=== PATIENT | male | born 1990 | race Hispanic/Latino ===

== ENCOUNTER 2018-04-07 22:00 | Emergency (ER) | payer BC ==
[2018-04-07 22:04] VITALS: BP 124/65; PULSE 98; RESP 18; TEMP 97.7; O2SAT 99
--- NOTE | 2018-04-07 23:29 | ED PDOC ---
HPI: Psych/Substance Abuse Time Seen by Provider: 04/07/18 22:12 Chief Complaint (Nursing): Alcohol Ingestion Chief Complaint (Provider): Alcohol Ingestion ED Caveat: Intoxicated History Per: Patient, EMS History/Exam Limitations: intoxication Onset/Duration Of Symptoms: Mins Additional Complaint(s): 28 year old male presents to the ED for alcohol intoxication and found sleeping in public. Patient admits to alcohol use and has no complaints, injuries, or drug use. PMD: none provided Past Medical History Reviewed: Historical Data, Nursing Documentation, Vital Signs Vital Signs: Last Vital Signs Temp 97.7 F 04/07/18 22:02 Pulse 98 H 04/07/18 22:02 Resp 18 04/07/18 22:02 BP 124/65 04/07/18 22:02 Pulse Ox 99 04/07/18 22:02 - Medical History PMH: No Chronic Diseases - Surgical History Surgical History: No Surg Hx - Family History Family History: States: Unknown Family Hx - Social History Alcohol: Social Drugs: Denies - Allergies Allergies/Adverse Reactions: Allergies Allergy/AdvReac Type Severity Reaction Status Date / Time No Known Allergies Allergy Verified 04/07/18 23:03 Review of Systems ROS Statement: Except As Marked, All Systems Reviewed And Found Negative Physical Exam - Reviewed Nursing Documentation Reviewed: Yes Vital Signs Reviewed: Yes - Physical Exam Appears: Positive for: Non-toxic, No Acute Distress Head Exam: Positive for: ATRAUMATIC, NORMOCEPHALIC Skin: Positive for: Normal Color, Warm, Dry Eye Exam: Positive for: Normal appearance Neck: Positive for: Normal, Painless ROM Cardiovascular/Chest: Positive for: Regular Rate, Rhythm. Negative for: Murmur Respiratory: Positive for: Normal Breath Sounds. Negative for: Wheezing, Respiratory Distress Extremity: Positive for: Normal ROM Neurologic/Psych: Positive for: Alert, Oriented, Gait (stable). Negative for: Motor/Sensory Deficits - ECG O2 Sat by Pulse Oximetry: 99 (RA) Pulse Ox Interpretation: Normal Medical Decision Making Medical Decision Making: Initial Impression: Mild alcohol intoxication Initial Plan: Patient is stable for discharge. Patient has steady gait and is clinically sober. Scribe Attestation: Documented by Clifford Gonsalez acting as a scribe for Pascual Ruvalcaba MD. Provider Scribe Attestation: All medical record entries made by the Scribe were at my direction and personally dictated by me. I have reviewed the chart and agree that the record accurately reflects my personal performance of the history, physical exam, medical decision making, and the department course for this patient. I have also personally directed, reviewed, and agree with the discharge instructions and disposition. Disposition - Clinical Impression Clinical Impression: Alcohol abuse - Disposition Referrals: Alcoholics Anonymous [Outside] Disposition: Routine/Home Disposition Time: 23:00 Condition: STABLE Instructions: Effects of Alcohol on Your Health Forms: [facility] (Nepali)
== END 2018-04-07 22:55 | disposition home or self-care (01) ==
LOC: H.ER 22:00
DX: F10.10 Alcohol abuse, uncomplicated (principal)